=== PATIENT | female | born 1960 ===

== ENCOUNTER 2018-07-14 07:53 | Day surgery (SDC) | payer OTHER ==
[2018-07-14] MEDS ORDERED: Lidocaine PF 2% (5 ml) Inj (For Cardiac Arrhy) ONE (09:11)
[2018-07-14] MEDS ORDERED: Iodixanol 320 MG/ML 100 ML BOTTLE IV ONE (09:11)
[2018-07-14] MEDS ORDERED: Iohexol 350mgl/ml 50 ML ONE (09:11)
[2018-07-14] MEDS ORDERED: Phenylephrine 10 mg/ml Inj ONE (09:11)
[2018-07-14] MEDS ORDERED: Verapamil 2 ML ONE (09:11)
[2018-07-14] MEDS ORDERED: Nitroglycerin 50mg in D5W 50 MG/250 ML BOTTLE IV ONE (09:12)
[2018-07-14] MEDS ORDERED: Iodixanol 320 MG/ML 200 ML BOTTLE IV ONE (09:12)
[2018-07-14] MEDS ORDERED: Midazolam 2 MG/2 ML VIAL ONE ×2 (09:18→09:32)
[2018-07-14] MEDS ORDERED: Adenosine 90 mg/30mL IV ONE (09:23)
[2018-07-14 10:03] VITALS: BMI 29.2
[2018-07-14] MEDS ORDERED: Dextrose 50% SYRINGE Inj (50 ml) IV PRN (10:25)
[2018-07-14] MEDS ORDERED: Sodium Chloride 0.9% 1,000 ML IV SCH (11:15)
[2018-07-14] MEDS ORDERED: Albuterol-Ipratrop 3 mg / 0.5 (3 ml) UD IH PRN (12:50)
[2018-07-14] MEDS: Insulin Reg-LOW-Coverage SC SCH ×2 (13:00→18:03)
[2018-07-14 13:25] LABS: BASO # 0.01 K/mm3 (0.0-2.0); BASO % 0.2 % (0.0-3.0); EOS # 0.4 (0.0-0.7); EOS % 5.8 % (1.5-5.0); HEMOGLOBIN 8.7 g/dL (12.0-16.0); LYMPH # 1.4 (1.2-3.4); LYMPH % 21.5 % (22.0-35.0); MEAN CELL VOLUME 88.8 fl (80.0-105.0); MEAN CORPUSCULAR HEMOGLOBIN 29.6 pg (25.0-35.0); MEAN CORPUSCULAR HGB CONC 33.3 g/dl (31.0-37.0); MEAN PLATELET VOLUME 8.9 fl (7.0-11.0); MONO # 0.3 (0.1-0.6); RBC 2.94 10^6/uL (3.5-6.1); WHITE BLOOD COUNT 6.4 10^3/uL (4.5-11.0)
[2018-07-14 13:35] LABS: ALBUMIN 3.9 g/dL (3.0-4.8); AST/SGOT 23 U/L (14-36); BLOOD UREA NITROGEN 35 mg/dL (7-21); CALCIUM 8.6 mg/dL (8.4-10.5); GFR NON-AFRICAN AMERICAN 20
[2018-07-14 13:38] LABS: ALT/SGPT < 6 U/L (7-56)
[2018-07-14 13:43] LABS: B-TYPE NATRIURETIC PEPTIDE 2930 pg/mL (0-450)
[2018-07-14] MEDS ORDERED: Albuterol-Ipratrop 3 mg / 0.5 (3 ml) UD IH SCH (14:00)
--- NOTE | 2018-07-14 14:06 | CP.PCM.PN ---
Subjective - Date & Time of Evaluation Date of Evaluation: 07/14/18 Time of Evaluation: 13:00 - Subjective Subjective: Seen and examined 58 y/o F called by RN for dyspnea at rest BIBA from [facility] s/p PCI with stent x 2 to the LAD today. PMHx CAD, CHF, Pulm. HTN, HLD, IDDM2, HTN, HLD, Schizophrenia and Depression. On exam tacypneic and labored, SPO2 91% on 3L NC, bilateral rhonci scattered with expiratory wheezing. Objective - Vital Signs/Intake and Output Vital Signs (last 24 hours): Temp Pulse Resp BP Pulse Ox 97.7 F 98 H 20 174/96 H 07/14/18 12:00 07/14/18 12:00 07/14/18 12:00 07/14/18 12:58 - Medications Medications: Current Medications Albuterol/Ipratropium (Duoneb 3 Mg/0.5 Mg (3 Ml) Ud) 3 ml IH [id number] SAUL Last Admin: 07/14/18 13:12 Dose: 3 ml Albuterol/Ipratropium (Duoneb 3 Mg/0.5 Mg (3 Ml) Ud) 3 ml IH Q2H PRN PRN Reason: Shortness of Breath Dextrose (Dextrose 50% Inj) 0 ml IV STAT PRN; Protocol PRN Reason: Hypoglycemia Protocol Dextrose (Dextrose 5% In Water 1000 Ml) 1,000 mls @ 0 mls/hr IV .Q0M PRN; Protocol PRN Reason: Hypoglycemia Protocol Insulin Human Regular (Humulin R Low) 0 units SC ACHS SAUL; Protocol - Labs Labs: 07/14/18 13:00 07/14/18 13:00 - Constitutional Appears: Non-toxic, In Acute Distress - Head Exam Head Exam: ATRAUMATIC - Eye Exam Eye Exam: EOMI, Normal appearance, PERRL Pupil Exam: NORMAL ACCOMODATION - ENT Exam ENT Exam: Mucous Membranes Moist, Normal Exam - Neck Exam Neck Exam: Full ROM, Normal Inspection - Respiratory Exam Respiratory Exam: Accessory Muscle Use, Rhonchi, Respiratory Distress - Cardiovascular Exam Cardiovascular Exam: REGULAR RHYTHM, +S1, +S2 Additional comments: no chest pain - GI/Abdominal Exam GI & Abdominal Exam: Soft, Normal Bowel Sounds - Extremities Exam Extremities Exam: Full ROM, Normal Capillary Refill - Back Exam Back Exam: NORMAL INSPECTION - Neurological Exam Neurological Exam: Alert, Awake, CN II-XII Intact, Normal Gait, Oriented x3 Neuro motor strength exam: Left Upper Extremity: 5, Right Upper Extremity: 5, Left Lower Extremity: 5, Right Lower Extremity: 5 - Psychiatric Exam Psychiatric exam: Normal Mood - Skin Skin Exam: Dry, Intact, Normal Color, Warm Assessment and Plan - Assessment and Plan (Free Text) Assessment: CHF vs Pulmonary Edema Exacerbation Plan: Lasix 40mg IVP x 1 dose Duoneb stat 02 4L NC keep SPO2 92% and above P-CXR stat Cbc, Cmp, Mg, Phos, BNP-stat Case discussed with Dr. Albarado and is in agreement of treatment plan.
--- NOTE | 2018-07-14 14:21 | RAD ---
Date of service: 07/14/2018 HISTORY: dyspnea COMPARISON: No prior. FINDINGS: LUNGS: No active pulmonary disease. PLEURA: No significant pleural effusion identified, no pneumothorax apparent. CARDIOVASCULAR: No aortic atherosclerotic calcification present. Moderate cardiomegaly. Severe vascular congestion OSSEOUS STRUCTURES: No significant abnormalities. VISUALIZED UPPER ABDOMEN: Normal. OTHER FINDINGS: None. IMPRESSION: Moderate cardiomegaly with severe vascular congestion
[2018-07-14] MEDS ORDERED: Bacitracin 500 Units/gm Oint Foilpak UD ONE (14:50)
--- NOTE | 2018-07-14 15:26 | CARDCATH ---
PROCEDURE DATE: 07/14/2018 INDICATIONS: Maria Luisa Hernandez is a 58-year-old female, who presented to [facility] with complaints of acute onset shortness of breath, back discomfort, and some atypical chest pain. She was diagnosed with heart failure in the past and was scheduled to undergo outpatient stress test. The patient subsequently did not follow and then presented back. She had some atypical vague chest discomfort and, therefore, was brought to Catheterization Lab at [facility] for evaluation of underlying CAD as a presentation of her heart failure exacerbation. The patient's cath at [facility] revealed a mid LAD 75% stenosis; therefore, she was brought to [facility] for further evaluation and treatment of mid LAD moderate to high-grade stenosis. PROCEDURES PERFORMED: Left coronary angiogram via 6-Macedonian left radial arterial approach, FFR-guided PCI of mid LAD, PTCA stenting of mid LAD with drug-eluting stents 3.0 x 12, Wilton Resolute 2.75 x 15 Wilton drug-eluting stent with lesion reduction from 70% down to 0% GRETA-3 flow. ANGIOGRAPHIC FINDINGS: Mid LAD lesion was identified. FFR wire was used to cross. Adenosine was infused for 2 minutes. FFR was measured at 0.75. Lesion was predilated with a 2.5 balloon and subsequently stented with a 2.75 x 15 and 3.0 x 12 mm Wilton drug-eluting stent. Final angiogram done showed lesion reduction down to 0% GRETA-3 flow. IMPRESSION: Successful percutaneous transluminal coronary angioplasty stenting of mid left anterior descending with deployment of two drug-eluting stents. RECOMMENDATION: The patient can be discharged back to [facility] in 3 hours. Continue the patient on dual-antiplatelet therapy. The patient has been loaded with 300 of Plavix in the slabber light and given 325 of aspirin. The patient will continue with beta-blockers, statins and plus/minus marcello inhibitors. Galindo Albarado MD
[2018-07-14 16:54] VITALS: PULSE 97
[2018-07-14 18:27] VITALS: BP 187/84; RESP 20; TEMP 97.9; O2SAT 96
--- NOTE | 2018-07-14 22:48 | CARD ---
APPROVED REPORT Date of service: 07/14/2018 EKG Measurement Heart [id number] <Conclusion> Normal sinus rhythm Normal ECG
== END 2018-07-14 19:01 | disposition short-term general hospital (02) ==
LOC: SDS 07:53 → 2RSO 10:25 → SDS 19:01
PROVIDERS: ATTEND Internal Medicine Interventional Cardiology
DX: I25.10 Atherosclerotic heart disease of native coronary artery without angina pectoris (principal); I11.0 Hypertensive heart disease with heart failure; I50.9 Heart failure, unspecified; E11.9 Type 2 diabetes mellitus without complications; E78.5 Hyperlipidemia, unspecified; F20.9 Schizophrenia, unspecified; F32.9 Major depressive disorder, single episode, unspecified; Z79.4 Long term (current) use of insulin
CPT/HCPCS: 36415; 71045; 80053; 82948; 83735; 83880; 84100; 85025; 85175; 93005; 93454; 93571; 94640; C1725; C1769 ×2; C1874 ×2; C1887 ×2; C1894; C9600; J0153; J1644 ×2; J1940; J2250; J3010; Q9966; Q9967